=== PATIENT | female | born 1945 | race Two or more races ===

== ENCOUNTER 2022-11-15 17:40 | Emergency (ER) | payer OTHER ==
[~2022-11-15] VITALS: Ht 170.2 cm; Wt 57.6 kg
--- NOTE | 2022-11-15 17:40 | NUR ---
BIBA FOR SYNCOPAL EPISODE WHILE WALKING WITH GRANDDAUGHTER. DID NOT HIT HEAD OR LOSE CONSCIOUSNESS. BLOOD PRESSURE WAS 70/50 UPON EMS ARRIVAL, RAISED TO 113/60 AFTER NS, BP STABLE UPON ARRIVAL TO ER. A/O X 3, ABLE TO MAKE NEEDS KNOWN.
[2022-11-15] MEDS ORDERED: IV NS 0.9% 1,000 ML BAG IV ONE (18:00)
[2022-11-15 18:55] LABS: BASOPHILS % (AUTO) 0.3 % (0.0-2.0); EOSINOPHILS % (AUTO) 1.4 % (0.0-6.0); HEMATOCRIT 38 % (33-45); HEMOGLOBIN 12.5 g/dL (11.5-14.8); LYMPHOCYTES # (AUTO) 0.8 K/uL (0.8-4.8); LYMPHOCYTES % (AUTO) 9.9 % (20.0-44.0); MEAN CORPUSCULAR HGB CONC 33 g/dl (31.0-36.0); MEAN CORPUSCULAR VOLUME 94 fL (82-100); MONOCYTES # (AUTO) 0.4 K/uL (0.1-1.30); MONOCYTES % (AUTO) 4.4 % (2.0-12.0); NEUTROPHILS # (AUTO) 6.7 K/uL (1.8-8.9); PLATELET COUNT (AUTO) 202 K/uL (150-450); RED BLOOD CELL COUNT(AUTO) 4.04 MIL/uL (4.0-5.2)
--- NOTE | 2022-11-15 19:00 | NUR ---
BLOOD SAMPLES OBTAINED
[2022-11-15 19:13] LABS: CALCIUM, SERUM 8.4 mg/dL (8.5-10.1); CARBON DIOXIDE 26 mmol/L (21-32); CHLORIDE 109 mmol/L (98-107); CREATININE 0.8 mg/dL (0.6-1.3); GLUCOSE 102 mg/dL (74-106); POTASSIUM 3.6 mmol/L (3.5-5.1); SODIUM SERUM 142 mmol/L (136-145); UREA NITROGEN, BLOOD 10 mg/dL (7-18)
[2022-11-15 20:13] LABS: ALANINE AMINOTRANSFERASE 20 U/L (12-78); ALBUMIN 3.6 g/dL (3.4-5.0); ALKALINE PHOSPHATASE 58 U/L (46-116); ASPARTATE AMINOTRANSFERASE 18 U/L (15-37); BILIRUBIN,TOTAL 0.7 mg/dL (0.2-1.0)
[2022-11-15 20:14] LABS: TOTAL PROTEIN, SERUM 6.6 g/dL (6.4-8.2)
--- NOTE | 2022-11-15 21:09 | NUR ---
DR. JHA AT [facility]
--- NOTE | 2022-11-15 21:42 | NUR ---
DEVONTE BOWERS DAUGHTER [phone]
--- NOTE | 2022-11-15 21:49 | NUR ---
PT DAUGHTER AT BEDSIDE
[2022-11-15 21:51] LABS: BILIRUBIN,URINE NEGATIVE (NEGATIVE); COLOR,URINE YELLOW (YELLOW); LEUKOCYTE ESTERASE ,URINE NEGATIVE (NEGATIVE); NITRITE, URINE NEGATIVE (NEGATIVE); PH,URINE 7.5 (5.0-8.0); PROTEIN,URINE NEGATIVE (NEGATIVE); UGLUCOSE NEGATIVE (NEGATIVE); UROBILINOGEN,URINE 0.2 EU/dL (0.2)
--- NOTE | 2022-11-15 21:53 | NUR ---
DR. JHA AT BEDSIDE
--- NOTE | 2022-11-15 22:10 | NUR ---
CALLED [facility] AND PAGED DIRECTOR OF HOTEL OPERATIONS
[2022-11-15 23:37] VITALS: BP 131/76
--- NOTE | 2022-11-15 23:37 | NUR ---
Patient discharged to home in stable condition. Written and verbal after care instructions given. Patient verbalizes understanding of instruction.IV removed. Catheter intact and site benign. Pressure and 4x4 applied to site. No bleeding noted.
[2022-11-15 23:58] LABS: BILIRUBIN,DIRECT 0.2 mg/dL (0.0-0.2)
== END 2022-11-15 23:39 | disposition home or self-care (01) ==
LOC: ER 17:44
DX: G93.0 Cerebral cysts (principal); M79.642 Pain in left hand; R55 Syncope and collapse; I10 Essential (primary) hypertension; E78.5 Hyperlipidemia, unspecified
CPT/HCPCS: 36415; 70450-TC; 71045-TC; 73130-TC; 80048-TC; 80076-TC; 84484-TC; 85025-TC; J7030